=== PATIENT | male | born 1995 | race Caucasian/White ===

== ENCOUNTER 2016-07-16 09:48 | Emergency (ER) | payer OTHER | END 2016-07-16 13:14 | disposition home or self-care (01) | LOC: FER 09:48 | DX: S16.1XXA Strain of muscle, fascia and tendon at neck level, initial encounter (principal); V49.40XA Driver injured in collision with unspecified motor vehicles in traffic accident, initial encounter; Y92.410 Unspecified street and highway as the place of occurrence of the external cause | CPT/HCPCS: 72040; 99284 ==

== ENCOUNTER 2021-09-03 09:08 | Emergency (ER) | payer OTHER ==
[2021-09-03 10:47] LABS: BASOPHIL 0.3 % (0-2); EOSINOPHIL 0.3 % (0-5); HCT 47.4 % (42.0-52.0); HGB 16.1 g/dl (13.2-18.0); LYMPHOCYTE 3.7 % (15-48); MCV 85.3 fL (78.0-100.0); MONOCYTE 6.8 % (0-12); MPV 9.3 fL (6.0-9.5); NEUTROPHIL 88.3 % (41-80); NRBC 0; PLT 254 K/uL (150-400); RBC 5.56 M/uL (4.70-6.00); RDW 11.7 % (11.5-14.0); WBC 11.8 K/uL (4.0-10.5)
[2021-09-03 11:02] LABS: ALBUMIN 4.3 g/dL (3.4-5.0); BILIRUBIN - TOTAL 0.7 mg/dL (0.2-1.0); CREATININE 0.82 mg/dL (0.67-1.17); POTASSIUM 4.2 mmol/L (3.5-5.1); TOTAL PROTEIN 8.3 g/dL (6.4-8.2)
[2021-09-03] MEDS ORDERED: ONDANSETRON ODT4 MG PO (11:12)
== END 2021-09-03 11:29 | disposition home or self-care (01) ==
LOC: FER 09:08
PROVIDERS: Emergency Medicine
DX: U07.1 COVID-19 (principal)
CPT/HCPCS: 36415; 74022; 80053; 85025; J2405; U0002